=== PATIENT | female | born 1950 | race Caucasian/White ===

== ENCOUNTER 2018-07-27 06:55 | Day surgery (SDC) | payer OTHER, MEDICAID ==
[~2018-07-27] VITALS: Ht 157.5 cm; Wt 43.1 kg
[2018-07-27] MEDS ORDERED: SIMETHICONE 40 MG/0.6 ML ML ONE (07:19)
[2018-07-27] MEDS: MEPERIDINE HCL/PF 100 MG/ML AMP ONE ×3 (08:13→08:40)
[2018-07-27] MEDS: MIDAZOLAM HCL 5 MG/5 ML VIAL ONE ×4 (08:13→08:20)
[2018-07-27 11:39] VITALS: BP_SYST 99
== END 2018-07-27 10:45 | disposition home or self-care (01) ==
LOC: SDS 06:55 → SMU 06:55 → SDS 10:45
PROVIDERS: ATTEND Internal Medicine Gastroenterology
DX: R10.9 Unspecified abdominal pain (principal); K59.00 Constipation, unspecified; K29.50 Unspecified chronic gastritis without bleeding; K44.9 Diaphragmatic hernia without obstruction or gangrene; K21.9 Gastro-esophageal reflux disease without esophagitis; Z86.19 Personal history of other infectious and parasitic diseases; Z79.899 Other long term (current) drug therapy; K22.70 Barrett's esophagus without dysplasia; K64.8 Other hemorrhoids; J43.9 Emphysema, unspecified
CPT/HCPCS: 36415; 43239; 45378; 87081; 88305; 88312; 88313; J2175; J2250; J7030